=== PATIENT | male | born 1950 | race Caucasian/White ===

== ENCOUNTER 2019-09-21 03:01 | Emergency (ER) | payer OTHER, MEDICARE ==
[~2019-09-21] VITALS: Ht 167.6 cm; Wt 70.8 kg
[~2019-09-21 03:01] MED LIST: CIPR500 PO
[2019-09-21] MEDS ORDERED: TESTOSTERONE200 MG (03:32)
[2019-09-21] MEDS ORDERED: ANASTROZOLE PO (03:32)
[2019-09-21] MEDS ORDERED: DHEA PO (03:33)
[2019-09-21] MEDS ORDERED: PREGNENOLONE PO (03:34)
[2019-09-21] MEDS ORDERED: HYDR1TAB94 PO (03:34)
[2019-09-21] MEDS ORDERED: Cholest Off450 MG PO (03:40)
[2019-09-21] MEDS ORDERED: UBID10 PO (03:41)
[2019-09-21] MEDS ORDERED: THERA-D2000 UNIT PO (03:41)
[2019-09-21] MEDS ORDERED: TUMERIC PO (03:41)
[2019-09-21] MEDS ORDERED: POTASSIUM GLUC500 MG PO (03:41)
[2019-09-21] MEDS ORDERED: MAGNESIUM PO (03:41)
[2019-09-21] MEDS ORDERED: METO25 PO (03:42)
== END 2019-09-21 04:50 | disposition home or self-care (01) ==
LOC: ER 03:01
DX: K14.0 Glossitis (principal); J06.9 Acute upper respiratory infection, unspecified; J44.9 Chronic obstructive pulmonary disease, unspecified; Z79.899 Other long term (current) drug therapy
CPT/HCPCS: 99282

== ENCOUNTER → 2019-10-11 | Outpatient (CLI) | payer OTHER, MEDICARE ==
[~2019-10-11] MED LIST changes: +ANASTROZOLE PO; +Cholest Off450 MG PO; +DHEA PO; +HYDR1TAB94 PO; +MAGNESIUM PO; +METO25 PO; +POTASSIUM GLUC500 MG PO; +PREGNENOLONE PO; +TESTOSTERONE200 MG; +THERA-D2000 UNIT PO; +TUMERIC PO; +UBID10 PO
== END | disposition home or self-care (01) ==
LOC: LAB SHORT 14:07 → LAB EV 14:07
DX: K14.0 Glossitis (principal)
CPT/HCPCS: 87070

== ENCOUNTER → 2020-08-07 | Outpatient (CLI) | payer OTHER, MEDICARE | LOC: LAB SHORT 14:15 → LAB EV 14:15 | DX: R19.4 Change in bowel habit (principal) | CPT/HCPCS: 87177; 87209 ==

== ENCOUNTER 2022-08-05 09:53 | Day surgery (SDC) | payer OTHER, MEDICARE ==
[~2022-08-05] VITALS: Ht 167.6 cm; Wt 68.3 kg
[2022-08-05] MEDS ORDERED: Lisinopril2.5 MG (10:19)
[2022-08-05] MEDS ORDERED: NIACIN (10:19)
[2022-08-05] MEDS ORDERED: EZET10 (10:19)
[2022-08-05] MEDS ORDERED: PROBIOTIC1 EA13 (10:19)
[2022-08-05] MEDS ORDERED: MAGNESIUM OXID500 MG (10:20)
[2022-08-05] MEDS ORDERED: ZINC15 (10:20)
--- NOTE | 2022-08-05 10:54 | NUR ---
08/05/22 1054 Deirdre Nicolas THREE ATTEMPTS AT IV. FIRST ATTEMPT IN R HAND BY MA UNABLE TO ADVANCE CATHETER. SECOND ATTEMPT IN L HAND BY MA UNABLE TO ADVANCE CATHETER. THRID ATTEMPT BY RN IN R FOREARM SUCESSFUL.
== END 2022-08-05 12:16 | disposition home or self-care (01) ==
LOC: ORSCSDS 09:53
PROVIDERS: Internal Medicine Gastroenterology
PROC: 0DBH8ZX Excision of Cecum, Via Natural or Artificial Opening Endoscopic, Diagnostic (ICD-10-PCS; principal; 2022-08-05 11:15)
DX: Z12.11 Encounter for screening for malignant neoplasm of colon (principal); K21.9 Gastro-esophageal reflux disease without esophagitis; D12.0 Benign neoplasm of cecum; K57.30 Diverticulosis of large intestine without perforation or abscess without bleeding; I10 Essential (primary) hypertension; J45.909 Unspecified asthma, uncomplicated; J44.9 Chronic obstructive pulmonary disease, unspecified; Z87.891 Personal history of nicotine dependence; Z79.899 Other long term (current) drug therapy
CPT/HCPCS: 88305; J2704; J7120

== ENCOUNTER 2023-09-18 10:30 | Observation (INO) | payer OTHER, MEDICARE ==
[~2023-09-18] VITALS: Ht 177.8 cm; Wt 72.6 kg
[~2023-09-18 10:30] MED LIST changes: +EZET10 PO; +Lisinopril2.5 MG PO; +MAGNESIUM OXID500 MG; +NIACIN; +PROBIOTIC1 EA13; +ZINC15
[2023-09-18 11:52] LABS: BASOPHILS ABSOLUTE AUTO 0.02 K/mm3 (0.00-0.23); BASOPHILS PERCENT AUTO 0 % (0-2); EOSINOPHILS ABSOLUTE AUTO 0.04 K/mm3 (0.00-0.68); EOSINOPHILS PERCENT AUTO 1 % (0-6); Hematocrit 40.8 % (37.0-53.0); Hemoglobin 13.5 g/dL (13.5-17.5); IMMATURE GRAN ABSOLUTE AUTO 0.02 K/mm3 (0.00-0.10); IMMATURE GRAN PERCENT AUTO 0 % (0-1); LYMPHOCYTES ABSOLUTE AUTO 0.97 K/mm3 (0.84-5.20); LYMPHOCYTES PERCENT AUTO 13 % (21-46); MONOCYTES ABSOLUTE AUTO 0.34 K/mm3 (0.16-1.47); MONOCYTES PERCENT AUTO 5 % (4-13); Mean Corpuscular HGB 32.1 pg (26.0-34.0); Mean Corpuscular HGB Conc 33.1 g/dL (31.5-36.5); Mean Corpuscular Volume 97 fL (80-100); Mean Platelet Volume 9.3 fL (9.1-12.4); NEUTROPHILS ABSOLUTE AUTO 5.93 K/mm3 (1.96-9.15); NEUTROPHILS PERCENT AUTO 81 % (41-73); Platelet Count 135 K/mm3 (150-400); RDW Coefficient Variation 11.9 % (11.7-14.2); RDW Standard Deviation 42.5 fL (35.1-46.3); White Blood Cell Count 7.32 K/mm3 (4.00-11.30)
[2023-09-18 12:07] LABS: Albumin, Blood 3.6 g/dL (3.4-5.0); Albumin/Globulin Ratio 1.2 (0.8-1.8); Bilirubin, Total 0.4 mg/dL (0.1-1.0); Bun/Creatinine Ratio 23.5 (12.0-20.0); Calcium, Blood 8.4 mg/dL (8.5-10.1); Creatinine, Blood 0.89 mg/dL (0.60-1.20); Globulin, Blood 3.1 g/dL (2.2-4.0); Potassium, Blood 4.4 mmol/L (3.5-5.5); Total Protein, Blood 6.7 g/dL (6.4-8.2)
[2023-09-18 17:01] VITALS: BP 145/75
[2023-09-18] MEDS ORDERED: ASPI81CH PO (17:09)
--- NOTE | 2023-09-18 17:39 | NUR ---
pt arrived to 342 via gurney from ED, report obtained, pt is able to stand and transfer to bed with one person assist, he definitaly gets dizzy when he is up, a/ox4, pleasant and cooperative with care, follows commands well, denies pain at this time, has chronic pain, lungs are clear t/o, resp even and unlabord, on r/a, resp even and unlabored, no coug noted, hrr, no edema noted, ppp+2, cap refill <3sec, vs stable, afebrile, piv site is clear and patent, btx4, abd flat soft nontender, voids without diff, skin c/w/d, maew, gordon, call oriented to room layout and call systemt, call light in reach.
--- NOTE | 2023-09-18 18:16 | NUR ---
pt doing ok in bed, MRI is on the way up to get him for head MRI, no further changes. call light in reach.
[2023-09-18 20:53] VITALS: BP 159/90
[2023-09-19 05:43] LABS: BASOPHILS ABSOLUTE AUTO 0.03 K/mm3 (0.00-0.23); BASOPHILS PERCENT AUTO 1 % (0-2); EOSINOPHILS ABSOLUTE AUTO 0.07 K/mm3 (0.00-0.68); EOSINOPHILS PERCENT AUTO 1 % (0-6); Hematocrit 41.6 % (37.0-53.0); Hemoglobin 14.3 g/dL (13.5-17.5); IMMATURE GRAN ABSOLUTE AUTO 0.01 K/mm3 (0.00-0.10); IMMATURE GRAN PERCENT AUTO 0 % (0-1); LYMPHOCYTES PERCENT AUTO 33 % (21-46); MONOCYTES ABSOLUTE AUTO 0.41 K/mm3 (0.16-1.47); MONOCYTES PERCENT AUTO 8 % (4-13); Mean Corpuscular HGB 32.6 pg (26.0-34.0); Mean Corpuscular HGB Conc 34.4 g/dL (31.5-36.5); Mean Corpuscular Volume 95 fL (80-100); Mean Platelet Volume 9.3 fL (9.1-12.4); NEUTROPHILS ABSOLUTE AUTO 2.93 K/mm3 (1.96-9.15); NEUTROPHILS PERCENT AUTO 57 % (41-73); Platelet Count 145 K/mm3 (150-400); RDW Coefficient Variation 12.1 % (11.7-14.2); Red Blood Cell Count 4.39 M/mm3 (4.30-5.90); White Blood Cell Count 5.15 K/mm3 (4.00-11.30)
[2023-09-19 05:55] VITALS: BP 137/79
[2023-09-19 06:08] LABS: Albumin, Blood 3.5 g/dL (3.4-5.0); Albumin/Globulin Ratio 1.2 (0.8-1.8); Bilirubin, Total 0.7 mg/dL (0.1-1.0); Calcium, Blood 8.8 mg/dL (8.5-10.1); Creatinine, Blood 0.79 mg/dL (0.60-1.20); Potassium, Blood 3.9 mmol/L (3.5-5.5); Total Protein, Blood 6.5 g/dL (6.4-8.2)
[2023-09-19 07:49] VITALS: BP 130/83
--- NOTE | 2023-09-19 07:52 | NUR ---
Shift Summary Pt AOx4. He remained in bed t/o the night using the urinal to void. He did not want to stand up and risk another episode of vertigo. He is on telly runing SB to NSR 50-70. Pain c/o chronic back pain from spinal fusion, medicated per emar. After recieving PM meds pt slept well t/o the night, only waking up to void.
[2023-09-19] MEDS ORDERED: DRAMAMINE25 M1 PO (12:38)
--- NOTE | 2023-09-19 13:12 | NUR ---
PATIENT DISCHARGED HOME WITH AND DAUGHTER, ALERT AND ORIENTED, PATIENT AND FAMILY STATED UNDERSTANDING AND DENIED FURTHER QUESTIONS ODISCHARGE INSTRUCTIONS, PLEASANT AND COOPERATIVE TO CARE
== END 2023-09-19 13:06 | disposition home or self-care (01) ==
LOC: ER 10:30 → MEDS 10:31
PROVIDERS: Emergency Medicine; ADMIT Internal Medicine
DX: R42 Dizziness and giddiness (principal); I10 Essential (primary) hypertension; E78.5 Hyperlipidemia, unspecified; J44.9 Chronic obstructive pulmonary disease, unspecified; G89.29 Other chronic pain; N40.0 Benign prostatic hyperplasia without lower urinary tract symptoms; Z86.73 Personal history of transient ischemic attack (TIA), and cerebral infarction without residual deficits; Z79.82 Long term (current) use of aspirin; Z88.0 Allergy status to penicillin; Z79.899 Other long term (current) drug therapy; Z88.2 Allergy status to sulfonamides
CPT/HCPCS: 36415; 70450; 70551; 80053; 85025; 93005; 93010; 96360; 96361; 96372; 97110; 97116; 97162; 99285-25; A9270; G0378; J1650; J7030